=== PATIENT | female | born 1935 | race Caucasian/White ===

== ENCOUNTER 2020-07-20 16:44 | Emergency (ER) | payer OTHER ==
[~2020-07-20] VITALS: Ht 152.4 cm; Wt 56.7 kg
[2020-07-20 17:13] VITALS: BP 139/88
--- NOTE | 2020-07-20 17:23 | NUR ---
BIB [facility] C/O COUGH, BODY ACHE 5/10, RUNNY NOSE X 1 WK. GRANDSON HAD COVID TESTED+. PMH: GALL BLADDER REMOVAL, HYSTERECTOMY
--- NOTE | 2020-07-20 17:25 | NUR ---
COVID SWAB SENT TO LAB.
[2020-07-20 17:34] VITALS: BP 139/88
== END 2020-07-20 17:33 | disposition home or self-care (01) ==
LOC: MED 16:44
DX: M79.10 Myalgia, unspecified site (principal); M54.6 Pain in thoracic spine; F17.210 Nicotine dependence, cigarettes, uncomplicated; Z90.49 Acquired absence of other specified parts of digestive tract; Z90.711 Acquired absence of uterus with remaining cervical stump; Z20.828 Contact with and (suspected) exposure to other viral communicable diseases
CPT/HCPCS: 99283; U0003